=== PATIENT | male | born 1990 | race American Indian/Alaskan Native ===

== ENCOUNTER 2017-09-05 12:28 | Emergency (ER) | payer BC ==
[2017-09-05 12:40] VITALS: BP 161/90
[2017-09-05] MEDS ORDERED: NACL 0.9% 1000 ML 1,000 ML IV ONE (12:55)
[2017-09-05] MEDS ORDERED: ATIVAN IV ONE (12:56)
--- NOTE | 2017-09-05 12:57 | Emergency Department Report ---
ED Chest Pain HPI - General Chief Complaint: Chest Pain Stated Complaint: CP Time Seen by Provider: 09/05/17 12:50 Source: patient Mode of arrival: Ambulatory Limitations: No Limitations - History of Present Illness Initial Comments: This is a 26-year-old male. The patient presents to the ER with the complaints of chest pain. The chest pain started at 12:30. It does not radiate to the arms, back or neck. There is no vomiting or diaphoresis, and denies DVT, pulmonary embolus risk factors. Patient does admit to consuming cocaine approximately 40 minutes prior to presentation. He reports consuming cocaine at least twice a week. He reports that he consumes it for recreational reasons. He is not homicidal or suicidal. He denies headache, neck pain, abdominal pain, leg pain, weakness, numbness, ataxia, homicidality, suicidality. MD Complaint: chest pain -: Gradual Onset: during rest Pain Location: left chest Pain Radiation: none Severity: mild Quality: aching Consistency: intermittent Improves With: nothing Worsens With: nothing Treatments Prior to Arrival: none Aspirin use within the Past 7 Days: (0) No - Related Data Allergies Allergy/AdvReac Type Severity Reaction Status Date / Time No Known Allergies Allergy Unverified 09/05/17 12:59 Heart Score - HEART Score History: Slightly suspicious EKG: Normal Age: < 45 Risk factors: 1-2 risk factors Troponin: < normal limit HEART Score: 1 - Critical Actions Critical Actions: 0-3 pts:0.9-1.7%risk of adverse cardiac event.Candidate for discharge ED Review of Systems ROS: Stated complaint: CP Other details as noted in HPI Comment: All other systems reviewed and negative Constitutional: denies: fever Eyes: denies: eye discharge ENT: denies: epistaxis Respiratory: denies: cough Cardiovascular: chest pain Gastrointestinal: denies: abdominal pain Genitourinary: as per HPI Musculoskeletal: as per HPI Skin: as per HPI Neurological: as per HPI Psychiatric: denies: homicidal thoughts, suicidal thoughts ED Past Medical Hx - Past Medical History Previous Medical History?: Yes Additional medical history: scoliosis - Surgical History Past Surgical History?: Yes Additional Surgical History: metal teresa in back - Social History Smoking Status: Current Some Day Smoker Substance Use Type: Cocaine, Heroin ED Physical Exam - General Limitations: No Limitations General appearance: alert, in no apparent distress - Head Head exam: Present: atraumatic, normocephalic - Eye Eye exam: Present: normal appearance, EOMI. Absent: nystagmus - ENT ENT exam: Present: normal exam, normal orophraynx, mucous membranes moist, normal external ear exam - Neck Neck exam: Present: normal inspection, full ROM. Absent: tenderness, meningismus - Respiratory Respiratory exam: Present: normal lung sounds bilaterally. Absent: respiratory distress - Cardiovascular Cardiovascular Exam: Present: normal rhythm, tachycardia, normal heart sounds. Absent: systolic murmur, diastolic murmur, rubs, gallop - GI/Abdominal GI/Abdominal exam: Present: soft, normal bowel sounds. Absent: distended, tenderness, guarding, rebound, rigid, pulsatile mass - Rectal Rectal exam: Present: deferred - Extremities Exam Extremities exam: Present: normal inspection, full ROM, normal capillary refill , other (there is no palpable cord. There is negative Homans sign.). Absent: pedal edema, joint swelling, calf tenderness - Back Exam Back exam: Present: normal inspection, full ROM. Absent: tenderness, CVA tenderness (R), paraspinal tenderness, vertebral tenderness - Neurological Exam Neurological exam: Present: alert, oriented X3, CN II-XII intact, normal gait, other (Extraocular movements intact. Tongue midline. No facial droop. Facial sensation intact to light touch in the V1, V2, V3 distribution bilaterally. 5 and 5 strength in 4 extremities.. Sensation is intact to light touch in 4 extremities.). Absent: motor sensory deficit - Psychiatric Psychiatric exam: Present: anxious. Absent: homicidal ideation, suicidal ideation - Skin Skin exam: Present: warm, dry, intact, normal color. Absent: rash ED Course Vital Signs 09/05/17 12:35 Temperature 99.1 F Pulse Rate 136 H Respiratory 16 Rate Blood Pressure 161/90 O2 Sat by Pulse 95 Oximetry - Reevaluation(s) Reevaluation #1: 09/05/17 15:19 Differential diagnosis, including but not limited to: Cocaine vasospasm, GERD, gastritis, anxiety, hiatal hernia, pneumonia, acute coronary syndrome Assessment and plan: 26-year-old male with cocaine associated chest pain. Initially was quite tachycardic. Given Ativan, and then on my repeat examination. Much improved with a resting heart rate in the 80s. On repeat examination he was playing on a cell phone, remained clinically sober and in no distress. It was explained to the patient's that the recommended course of action was observation in the ER for a few hours, along with serial EKGs and serial blood tests. The patient on my initial evaluation and subsequent evaluation was clinically sober, exhibited decision-making capacity, and was free from distracting injury. I did certified alcohol counselor the patient to discontinue cocaine consumption During the patient's course in the ER, he removed his appointments, to get his IV, and eloped prior to me being able to certified alcohol counselor him appropriately. The patient does not have a phone number and was to contact him. Therefore, I will have nursing staff contact the patient through a letter and encouraged him to return to the ER as soon as possible to complete his evaluation. 09/05/17 15:20 SHAN score - Shan Score Age > 65: (0) No Aspirin use within the Past 7 Days: (0) No 3 or more CAD Risk Factors: (0) No 2 or more Angina events in past 24 hrs: (0) No Known CAD with more than 50% Stenosis: (0) No Elevated Cardiac Markers: (0) No ST Deviation Greater than 0.5mm: (0) No SHAN Score: 0 ED Medical Decision Making - Lab Data Result diagrams: 09/05/17 12:47 09/05/17 12:47 Vital Signs 09/05/17 12:35 Temperature 99.1 F Pulse Rate 136 H Respiratory 16 Rate Blood Pressure 161/90 O2 Sat by Pulse 95 Oximetry Lab Results 09/05/17 09/05/17 09/05/17 Range/Units 12:47 12:47 12:47 WBC 9.8 (4.5-11.0) K/mm3 RBC 5.39 H (3.65-5.03) M/mm3 Hgb 15.1 (11.8-15.2) gm/dl Hct 45.7 H (35.5-45.6) % MCV 85 (84-94) fl MCH 28 (28-32) pg MCHC 33 (32-34) % RDW 14.9 (13.2-15.2) % Plt Count 442 H (140-440) K/mm3 PT (12.2-14.9) Sec. INR (0.87-1.13) Sodium 138 (137-145) mmol/L Potassium 3.8 (3.6-5.0) mmol/L Chloride 97.1 L (98-107) mmol/L Carbon Dioxide 24 (22-30) mmol/L Anion Gap 21 mmol/L BUN 9 (9-20) mg/dL Creatinine 0.7 L (0.8-1.5) mg/dL Estimated GFR > 60 ml/min BUN/Creatinine Ratio 13 % Glucose 135 H (75-100) mg/dL Calcium 9.7 (8.4-10.2) mg/dL Total Creatine Kinase 88 (55-170) units/L Troponin T < 0.010 (0.00-0.029) ng/mL Salicylates (2.8-20.0) mg/dL Acetaminophen (10.0-30.0) ug/mL 09/05/17 09/05/17 09/05/17 Range/Units 13:00 13:03 13:04 WBC (4.5-11.0) K/mm3 RBC (3.65-5.03) M/mm3 Hgb (11.8-15.2) gm/dl Hct (35.5-45.6) % MCV (84-94) fl MCH (28-32) pg MCHC (32-34) % RDW (13.2-15.2) % Plt Count (140-440) K/mm3 PT 13.9 (12.2-14.9) Sec. INR 1.02 (0.87-1.13) Sodium (137-145) mmol/L Potassium (3.6-5.0) mmol/L Chloride (98-107) mmol/L Carbon Dioxide (22-30) mmol/L Anion Gap mmol/L BUN (9-20) mg/dL Creatinine (0.8-1.5) mg/dL Estimated GFR ml/min BUN/Creatinine Ratio % Glucose (75-100) mg/dL Calcium (8.4-10.2) mg/dL Total Creatine Kinase (55-170) units/L Troponin T (0.00-0.029) ng/mL Salicylates < 0.3 L (2.8-20.0) mg/dL Acetaminophen < 5.0 L (10.0-30.0) ug/mL - EKG Data -: EKG Interpreted by Ct EKG shows normal: sinus rhythm Rate: tachycardia - EKG Data When compared to previous EKG there are: previous EKG unavailable 09/05/17 15:18 Sinus tachycardia, 140 bpm, normal axis, high left ventricular voltage, borderline atrial enlargement, no prior, not a stemi - Radiology Data Radiology results: report reviewed, image reviewed X-ray the chest is negative for acute disease Critical care attestation.: If time is entered above; I have spent that time in minutes in the direct care of this critically ill patient, excluding procedure time. ED Disposition Clinical Impression: Chest pain, History of cocaine use Disposition: ELOPED Is pt being admited?: No Does the pt Need Aspirin: No Condition: Undetermined Instructions: Chest Pain (ED) Referrals: PRIMARY CARE, [Primary Care Provider] - 3-5 Days
[2017-09-05 13:16] LABS: Hematocrit 45.7 % (35.5-45.6); Hemoglobin 15.1 gm/dl (11.8-15.2); Mean Corpuscular HGB Conc 33 % (32-34); Mean Corpuscular Hemoglobin 28 pg (28-32); Mean Corpuscular Volume 85 fl (84-94); Platelet Count 442 K/mm3 (140-440); Red Blood Count 5.39 M/mm3 (3.65-5.03); Red Cell Distribution Width 14.9 % (13.2-15.2)
[2017-09-05 13:38] LABS: INR 1.02 (0.87-1.13)
[2017-09-05 13:39] LABS: BUN/Creatinine Ratio 13; Blood Urea Nitrogen 9 mg/dL (9-20); Calcium 9.7 mg/dL (8.4-10.2); Hemolysis Index 1
--- NOTE | 2017-09-05 14:13 | XRay Report ---
FINAL REPORT EXAM: XR CHEST ROUTINE 2V HISTORY: Chest Pain TECHNIQUE: Two views of the chest were performed Comparison: None FINDINGS: Normal heart size. Lungs are clear and well expanded without focal infiltrate or consolidation. There are spinal rods projecting from the upper thoracic spine, to the lumbar spine, incompletely imaged. No pleural effusion. No pneumothorax. IMPRESSION: Spinal rods incompletely imaged from the thoracic to the lumbar spine. No acute cardiopulmonary disease identified. No pneumothorax.
--- NOTE | 2017-09-05 15:21 | ED Elopement Review ---
ED Pt Elopement review - Results review Lab results: Laboratory Tests 09/05/17 09/05/17 09/05/17 12:47 12:47 12:47 WBC 9.8 RBC 5.39 H Hgb 15.1 Hct 45.7 H MCV 85 MCH 28 MCHC 33 RDW 14.9 Plt Count 442 H PT INR Sodium 138 Potassium 3.8 Chloride 97.1 L Carbon Dioxide 24 Anion Gap 21 BUN 9 Creatinine 0.7 L Estimated GFR > 60 BUN/Creatinine Ratio 13 Glucose 135 H Calcium 9.7 Total Creatine Kinase 88 Troponin T < 0.010 Salicylates Acetaminophen 09/05/17 09/05/17 09/05/17 13:00 13:03 13:04 WBC RBC Hgb Hct MCV MCH MCHC RDW Plt Count PT 13.9 INR 1.02 Sodium Potassium Chloride Carbon Dioxide Anion Gap BUN Creatinine Estimated GFR BUN/Creatinine Ratio Glucose Calcium Total Creatine Kinase Troponin T Salicylates < 0.3 L Acetaminophen < 5.0 L - Call Back decision Pt Call Back Decision: Call pt to return to ED [facility] (patient needs to return to the emergency room to complete his chest pain evaluation.)
== END 2017-09-05 14:44 | disposition left against medical advice (07) ==
LOC: ED 12:28
DX: R07.9 Chest pain, unspecified (principal); F14.10 Cocaine abuse, uncomplicated; F17.200 Nicotine dependence, unspecified, uncomplicated
CPT/HCPCS: 36415; 71046; 80048; 82550; 84484; 85027; 85610; 93005; 93010; 96374; 99284; G0480; J2060; J7030; 80320